=== PATIENT | male | born 1965 | race Caucasian/White ===

== ENCOUNTER 2019-02-13 09:55 | Emergency (ER) | payer OTHER ==
[~2019-02-13] VITALS: Ht 170.2 cm; Wt 100.7 kg
[2019-02-13 10:01] VITALS: BP_SYST 132
--- NOTE | 2019-02-13 10:07 | NUR ---
Patient to ER bed 8 to gown for evaluation. Side rails up. Report given to Lola CRAIG.
--- NOTE | 2019-02-13 10:09 | NUR ---
md CASS Quinonez at bedside examining patient.
--- NOTE | 2019-02-13 10:11 | NUR ---
pt arrives from home w/ c/o urinary retention. Pt is s/p lap choly yesterday 02/12. Pt stated he has only been drippling urine since last night. Bladder is distended upon palpation.
--- NOTE | 2019-02-13 10:32 | NUR ---
16fr coude catheter placed using steerile technique. Pt tolerated well.
[2019-02-13 11:20] VITALS: BP_SYST 132
--- NOTE | 2019-02-13 11:22 | NUR ---
800ml drained from urinary drainage bag.
--- NOTE | 2019-02-13 11:25 | NUR ---
Patient given written and verbal discharge instructions and verbalizes understanding. ER MD discussed with patient the results and treatment provided. Patient in stable condition. ID arm band removed. Rx of Doxycycline given. Patient educated on pain management and to follow up with PMD. Pain Scale 0/10.Opportunity for questions provided and answered. Medication side effect fact sheet provided.
== END 2019-02-13 11:25 | disposition home or self-care (01) ==
LOC: SED 09:55
DX: R33.9 Retention of urine, unspecified (principal); I10 Essential (primary) hypertension
CPT/HCPCS: 99284

== ENCOUNTER 2019-02-18 01:42 | Emergency (ER) | payer OTHER ==
[~2019-02-18] VITALS: Ht 170.2 cm; Wt 99.3 kg
[2019-02-18 02:15] VITALS: BP_SYST 135
--- NOTE | 2019-02-18 02:20 | NUR ---
Pt placed to ER waiting room in stable condition.
--- NOTE | 2019-02-18 03:01 | NUR ---
Pt placed to ER bed 05.
--- NOTE | 2019-02-18 03:01 | NUR ---
Pt states that he's been unable to urinate since 1529 today after urinary catheter removed by surgeon. Pt s/p GB sx last sunday. Seen CH r/t urinary hesitancy and urinary cath placed.
--- NOTE | 2019-02-18 03:11 | NUR ---
Per bladder scanner 730 mL urinary retention.
--- NOTE | 2019-02-18 03:15 | NUR ---
Dr. Ladd at bedside.
--- NOTE | 2019-02-18 03:20 | NUR ---
# 16 FR Coude Almodovar catheter with use of sterile technique. Immediate return of 600 cc clear yellow urine noted. Bedside drainage bag placed below level of bladder. Urine sample collected and sent to lab. Pt tolerated procedure fair.
--- NOTE | 2019-02-18 03:30 | NUR ---
Pt states that he feels much better with 0/10 pain.
--- NOTE | 2019-02-18 03:54 | NUR ---
Dr. Ladd at bedside.
[2019-02-18 04:00] VITALS: BP_SYST 135
--- NOTE | 2019-02-18 04:00 | NUR ---
Patient given written and verbal discharge instructions and verbalizes understanding. ER MD discussed with patient the results and treatment provided. Patient in stable condition. ID arm band removed. Patient educated on pain management and to follow up with PMD. Pain Scale 0/10 Opportunity for questions provided and answered.
== END 2019-02-18 04:00 | disposition home or self-care (01) ==
LOC: SED 01:42
DX: R33.9 Retention of urine, unspecified (principal); I10 Essential (primary) hypertension; N40.0 Benign prostatic hyperplasia without lower urinary tract symptoms; Z90.49 Acquired absence of other specified parts of digestive tract; Z79.899 Other long term (current) drug therapy
CPT/HCPCS: 99284

== ENCOUNTER 2019-02-22 13:38 | Emergency (ER) | payer OTHER ==
[~2019-02-22] VITALS: Ht 170.2 cm; Wt 99.8 kg
[2019-02-22 14:15] VITALS: BP_SYST 143
--- NOTE | 2019-02-22 14:15 | NUR ---
Patient triaged and placed in waiting room. VSS and patient appears in no acute distress at this time. Accompanied by self, awaiting available bed, and MD notified of need for MSE.
--- NOTE | 2019-02-22 15:10 | NUR ---
Patient to ER bed 7 to gown for evaluation. Side rails up. Report given to RAFA Ulrich.
--- NOTE | 2019-02-22 15:11 | NUR ---
CASS Nava at bedside examining patient.
--- NOTE | 2019-02-22 15:20 | NUR ---
patient has cholecystecomy and developed rash around incision sites where physician prescribed doxycycline. Patient developed more of a rash around abdomen. patient denies nausea, vomiting and diarrhea. patient aaox4. will continue to monitor.
--- NOTE | 2019-02-22 15:50 | NUR ---
patient in room, no s/s of acute distress noted. will continue to monitor.
[2019-02-22] MEDS ORDERED: PREDNISONE 20 MG TABLET PO ONE (16:15)
[2019-02-22 16:59] LABS: BILIRUBIN,URINE NEGATIVE (NEGATIVE); BLOOD, URINE 2+ (NEGATIVE); CLARITY/URINE CLEAR (CLEAR); COLOR,URINE YELLOW (YELLOW); GLUCOSE,URINE NEGATIVE (NEGATIVE); KETONES,URINE NEGATIVE (NEGATIVE); LEUKOCYTE ESTERASE ,URINE TRACE (NEGATIVE); NITRITE, URINE NEGATIVE (NEGATIVE); PROTEIN URINE TRACE (NEGATIVE); UROBILINOGEN,URINE 0.2 (0.2-1.0)
[2019-02-22 17:05] VITALS: BP_SYST 143
--- NOTE | 2019-02-22 17:05 | NUR ---
Patient given written and verbal discharge instructions and verbalizes understanding. ER MD discussed with patient the results and treatment provided. Patient in stable condition. ID arm band removed. Rx of prenisone and benadryl given. Patient educated on pain management and to follow up with PMD. Pain Scale 0/10. Opportunity for questions provided and answered. Medication side effect fact sheet provided.
[2019-02-22 17:11] LABS: BACTERIA,URINE FEW /HPF (None Seen); MUCUS,URINE None Seen /LPF (None Seen); WBC,URINE 0-3 /HPF (0-3)
== END 2019-02-22 17:05 | disposition home or self-care (01) ==
LOC: SED 13:38
DX: R21 Rash and other nonspecific skin eruption (principal); T36.4X5A Adverse effect of tetracyclines, initial encounter; I10 Essential (primary) hypertension; Z90.49 Acquired absence of other specified parts of digestive tract; Y92.89 Other specified places as the place of occurrence of the external cause
CPT/HCPCS: 81000; 87086; 99283; J7512